=== PATIENT | male | born 1950 | race Caucasian/White ===

== ENCOUNTER 2018-10-21 08:39 | Day surgery (SDC) | payer MEDICARE, OTHER, SELFPAY ==
--- NOTE | 2018-10-21 | PATH_ITS ---
[facility] Accession Number: [id number] . 01 Material submitted: . RECTAL POLYP . 02 Diagnosis: Rectum, Polyp, Biopsy: Mucosal prolapse polyp. MRV/10/22/2018 . 02 Electronically signed: . Emily Humphrey MD, Pathologist NPI- [id number] . 01 Gross description: . Received one formalin-filled container labeled with the patient's name and labeled rectal polyp. The specimen consists of a 0.2 cm portion of tissue, entirely submitted in one cassette. ([id number]) /FRR . 02 Pathologist provided ICD-10: K63.5 . 02 CPT . 923257 Performed at: 01 [facility] [place] [address] [id number] MD Maynor Carvajal MD Phone: [phone] Performed at: 02 [facility] [place] [address] [place], [place] [id number] MD Emily Humphrey MD Phone: [phone]
[2018-10-21 09:07] VITALS: BP 137/92; PULSE 67; RESP 18; TEMP 36.7; O2SAT 98; BMI 32.3
[2018-10-21] MEDS: SODIUM CHLORIDE 0.9% 1,000 ML 200 ML IV (09:07)
--- NOTE | 2018-10-21 09:43 | PM.HP.1 ---
History of Present Illness Date Patient Seen: 10/21/18 Time Patient Seen: 09:43 Chief complaint: [id number] COLONOSCOPY Narrative: the patient is a gentleman who is here for a screening colonoscopy. His last exam was 5 years ago. He has a history of polyps. No family history of colon cancer. Patient History Medical History Healthy adult male (Acute) Elevated cholesterol (Chronic) Social History household members: spouse Family & Social History Social History: household members spouse Meds Home Medications Medication Instructions Recorded Confirmed Type ASPIRIN (Aspirin) 81 mg PO DAILY #0 08/03/08 10/21/18 History Atorvastatin Calcium (Lipitor) 10 mg PO BEDTIME #0 08/03/08 10/21/18 History Zolpidem Tartrate (Ambien) See Rx Instructions .ROUTE 08/03/08 History .COMPLEX #0 Allergies Allergy/AdvReac Type Severity Reaction Status Date / Time No Known Drug Allergies Allergy Verified 10/21/18 09:21 Review of Systems Review of Systems All systems reviewed & are unremarkable except as noted in HPI and below Exam Vital Signs (past 8 hours): - 10/21/18 09:07 Temperature 98.1 F Pulse Rate 67 Respiratory Rate 18 Blood Pressure 137/92 H Pulse Oximetry 98 Oxygen Delivery Method Room Air Narrative Exam Narrative: operative pleasant gentleman in no apparent distress. His eyes are nonicteric. Lungs are clear to auscultation. No rales or rhonchi. Heart regular rate and rhythm without murmur gallop. Abdomen is mildly protuberant soft nontender without mass. I believe the of the diastasis recti. Alert and oriented x3 Assessment & Plan Assessment & Plan narrative: patient for screening colonoscopy. I have discussed the procedure and the rationale with the patient including risks of bleeding, perforation which would necessitate a major operation, failure to find remove all lesions and the potential to tattoo. They appeared to understand and wished to proceed.
--- NOTE | 2018-10-21 09:47 | PM.PREOP ---
Pre-operative Note Interval Note History & Physical reviewed/Exam performed by Physician: Yes Changes to H&P: No ASA Class (for procedural sedation): I
[2018-10-21] MEDS: MIDAZOLAM 5 MG/5 ML VIAL IV (10:36)
[2018-10-21] MEDS: fentaNYL 250 MCG/5 ML INJ IV (10:37)
--- NOTE | 2018-10-21 10:41 | PM.OP.ENDO ---
Operative Date/Time/Diagnoses Date of procedure: 10/21/18 Time of procedure: 10:41 Pre-op diagnosis: screening exam. Last exam 5 years ago. History of polyps. Post-op diagnosis: same ( Single small polyp like lesion in the rectum.) Procedure & Clinicians Study performed: Colonoscopy with cold biopsy Same procedure as scheduled: Yes Indications: screening Surgeon: Tong Rubin Procedure Notes SCOAP/Timeout: performed Procedure in detail: The patient was placed in the left lateral decubitus position and underwent IV sedation directed by the surgeon consisting of fentanyl and Versed. Digital exam was[]. The scope was inserted and advanced through the rectum into the sigmoid, descending, transverse, and ascending colon. the colon was quite elongated and tortuous. The patient had to be repositioned, stiffener inserted common pressure applied to get that far. I ultimately reached the cecum.. The cecum was reached identified by the ileocecal valve and the appendiceal opening. The scope was gradually brought out. One Polyps were found at in the rectum and it was biopsied to complete removal. It was tiny.. The scope ultimately was retroflexed in the rectum. The appearance was Normal. The scope was removed and the patient tolerated the procedure well. there was a great deal of liquid in the patient's colon. Otherwise the prep was good. Scope withdrawal time: 9 min Sedation minutes: 40 Findings: polyp ( 1 tiny rectal) Specimen(s): other ( polyp) Complications: none Impression: tiny rectal polyp. Elongated tortuous colon. Recommendations: Colonscopy in 5 years Follow up: as needed Disposition: PACU
[2018-10-21 10:44] VITALS: BP 120/78; PULSE 59; RESP 14; TEMP 36.6; O2SAT 95
[2018-10-21 10:50] VITALS: BP 102/61; PULSE 53; RESP 14; O2SAT 96
[2018-10-21 10:55] VITALS: BP 104/72; PULSE 53; RESP 12; O2SAT 97
[2018-10-21 11:00] VITALS: BP 107/69; PULSE 53; RESP 11; O2SAT 95
[2018-10-21 11:11] VITALS: BP 105/70; PULSE 48; RESP 16; TEMP 36.6; O2SAT 94
== END 2018-10-21 11:30 | disposition home or self-care (01) ==
PROVIDERS: PCP Family Medicine Sports Medicine; Visit Provider Specialist
PROC: 0DJD8ZZ Inspection of Lower Intestinal Tract, Via Natural or Artificial Opening Endoscopic (ICD-10-PCS; CPT 45378; principal; 2018-10-21 09:45)
DX: Z86.010 Personal history of colon polyps; E78.00 Pure hypercholesterolemia, unspecified; D12.8 Benign neoplasm of rectum
CPT/HCPCS: 45380; 88305; 99152; 99153; J2250; J3010

== ENCOUNTER → 2020-04-28 16:20 | Outpatient (ROUT) | payer MEDICARE, OTHER, SELFPAY ==
[2020-04-28 17:42] LABS: Aspartate Aminotransferase 40 IU/L (17-59); BUN Creatinine Ratio 24.6 (6-22); Blood Urea Nitrogen 17 mg/dL (9-20); Calcium 9.4 mg/dL (8.4-10.2); Carbon Dioxide 30 mmol/L (22-32); Chloride 101 mmol/L (98-107); Cholesterol 164 mg/dL (140-199); Estimated Glomerular Filt Rate > 60.0 mL/min (>60); Glucose 88 mg/dL (80-110); HDL Cholesterol 44 mg/dL (40-60); HEMOLYSIS < 15 (0-50); LDL Cholesterol Calculated 86 mg/dL (<100); Potassium 4.6 mmol/L (3.4-5.1); Sodium 137 mmol/L (137-145); Triglycerides 171 mg/dL (35-150)
[2020-04-28 18:08] LABS: Prostate Specific Antigen 3.82 ng/mL (0.10-4.00); TSH w/ Reflex to FT4 2.38 uIU/mL (0.47-4.68)
== END ==
PROVIDERS: PCP Family Medicine Sports Medicine; Visit Provider Internal Medicine
DX: N40.0 Benign prostatic hyperplasia without lower urinary tract symptoms (principal); E78.2 Mixed hyperlipidemia; R94.6 Abnormal results of thyroid function studies
CPT/HCPCS: 80048; 80061; 84153; 84443; 84450

== ENCOUNTER → 2020-10-13 18:28 | Outpatient (ROUT) | payer MEDICARE, OTHER, SELFPAY ==
[2020-10-15 08:28] LABS: PSA Free % 15.6 % (.); PSA, Total 4.1 ng/mL (0.0-4.0)
== END ==
PROVIDERS: PCP Family Medicine Sports Medicine; Visit Provider Internal Medicine
DX: R97.20 Elevated prostate specific antigen [PSA] (principal)
CPT/HCPCS: 84153; 84154

== ENCOUNTER → 2021-08-23 11:50 | Outpatient (CLI) | payer MEDICARE, OTHER, SELFPAY ==
[2021-08-23 14:04] LABS: Prostate Specific Antigen 5.99 ng/mL (0.10-4.00)
== END ==
PROVIDERS: PCP Internal Medicine; Referring Provider Specialist; Visit Provider Specialist
DX: N40.1 Benign prostatic hyperplasia with lower urinary tract symptoms (principal); N13.8 Other obstructive and reflux uropathy; R97.20 Elevated prostate specific antigen [PSA]; N52.9 Male erectile dysfunction, unspecified
CPT/HCPCS: 36415; 51798; 84153; 99214

== ENCOUNTER → 2021-10-12 13:55 | Outpatient (CLI) | payer MEDICARE, OTHER, SELFPAY ==
[2021-10-13 07:47] LABS: PSA Free % 15.4 % (.)
== END ==
PROVIDERS: PCP Internal Medicine; Referring Provider Specialist; Visit Provider Specialist
DX: R97.20 Elevated prostate specific antigen [PSA] (principal)
CPT/HCPCS: 36415; 84153; 84154

== ENCOUNTER → 2022-01-02 15:35 | Outpatient (CLI) | payer MEDICARE, OTHER, SELFPAY ==
[2022-01-02 17:09] LABS: Prostate Specific Antigen Scrn 6.91 ng/mL (0.1-4.0)
== END ==
PROVIDERS: PCP Internal Medicine; Referring Provider Specialist; Visit Provider Specialist
DX: R97.20 Elevated prostate specific antigen [PSA] (principal)
CPT/HCPCS: 36415; 84153; G0103

== ENCOUNTER → 2022-01-08 13:50 | Outpatient (CLI) | payer MEDICARE, OTHER, SELFPAY ==
--- NOTE | 2022-01-08 14:00 | DI.CT.S_ITS ---
PROCEDURE: CT KIDNEY URETER BLADDER (KUB) INDICATIONS: Kidney stone TECHNIQUE: Axial sections were acquired from the lung bases to the pubic symphysis. Coronal and sagittal reformats were performed. For radiation dose reduction, the following was used: automated exposure control, adjustment of mA and/or kV according to patient size. COMPARISON: None. FINDINGS: Image quality: Excellent. Lung bases: Lung bases are clear. Heart size is normal. Solid organs: Liver: The liver has no mass or intrahepatic biliary ductal dilatation. The portal vein and hepatic veins are patent. Biliary: The gallbladder has no gallstones, pericholecystic fluid, gallbladder wall thickening, or surrounding inflammatory change. Pancreas: The pancreas has no mass or ductal dilatation. There is no surrounding inflammation. Spleen: Normal size. There are no masses. Adrenals: No hypertrophy or nodules. Kidneys: No obstructive calculus or hydronephrosis. No solid mass. No cystic mass. Peritoneum and bowel: The distal esophagus and stomach are normal. The small bowel has a normal caliber and appearance. The terminal ileum is normal. The large bowel has a normal caliber and appearance. The appendix is normal. No free fluid or air. Nodes and vessels: No retroperitoneal or mesenteric adenopathy by size criteria. Aorta and inferior vena cava are normal in size. Miscellaneous: No abdominal wall mass or hernia. PELVIS: Genitourinary: The bladder has no wall thickening or mass. No bladder calcifications. Bones: No suspicious bony lesions. Degenerative changes with no focal abnormality. IMPRESSION: 1. No acute or posttraumatic abnormality. 2. No nephroureterolithiasis. Dictated by: Fabien Saucedo M.D. on 01/08/2022 at 14:26 Approved by: Fabien Saucedo M.D. on 01/08/2022 at 14:31
== END ==
PROVIDERS: PCP Internal Medicine; Referring Provider Specialist; Visit Provider Specialist
DX: N20.0 Calculus of kidney (principal)
CPT/HCPCS: 74176

== ENCOUNTER → 2022-02-07 16:32 | Outpatient (CLI) | payer MEDICARE, OTHER, SELFPAY ==
[2022-02-09 03:44] LABS: Prostate Specific Antigen 5.13 ng/mL (0.10-4.00)
== END ==
PROVIDERS: PCP Internal Medicine; Referring Provider Specialist; Visit Provider Specialist
DX: R97.20 Elevated prostate specific antigen [PSA] (principal)
CPT/HCPCS: 36415; 84153

== ENCOUNTER → 2022-02-26 12:47 | Outpatient (CLI) | payer MEDICARE, OTHER, SELFPAY ==
--- NOTE | 2022-02-26 12:49 | DI.MRI.S_ITS ---
PROCEDURE: MR PELIS WO/W CON INDICATIONS: BPH TECHNIQUE: Coronal HASTE, axial T1 FSE with fat saturation, 3-plane nonbreath-hold T2 FSE. After the administration of contrast, dynamic axial, delayed axial and coronal VIBE or 2-D FLASH with fat saturation through the pelvis. Optional diffusion weighted imaging and ADC may be performed. COMPARISON: None. FINDINGS: Image quality: Diffusion weighted and dynamic contrast enhanced images are diagnostic. Prostate: Gland size is 5.4 x 3.9 x 5.2 cm; ellipsoid gland volume is 57 mL. Lesion #1: Size: 1.6 x 0.6 x 1.1 cm Location: Right posteromedial/posterolateral peripheral zone, mid gland (for example axial ADC series 24, image 15) T2 signal: Circumscribed hypointense DWI/ADC signal: Hypointense on ADC with corresponding DWI hyperintensity DCE: Positive FABIOLA: Possible FABIOLA posteriorly (for example sagittal T2 series 6, image 10) Seminal vesicle invasion: Absent PI-RADS: T2 signal - 5; ADC - 5; DCE - positive; Overall score: PI-RADS 5. Genitourinary system: Bladder wall thickness is normal. Distal ureters are non distended. Bowel and peritoneum: No pathologic free pelvic fluid. Inferior colon and small bowel loops are normal in caliber. Nodes and vessels: No pelvic or inguinal adenopathy by size criteria. Iliac arteries are normal in caliber. Bones: Marrow demonstrates unremarkable overall signal, without lesions to suggest metastases. IMPRESSION: 1. A 1.6 cm lesion at the right peripheral zone, mid gland, is consistent with PI-RADS category 5. There is possible extracapsular extension posteriorly. 2. No suspicious lymph nodes visualized in the imaged pelvis. Dictated by: Rufus Morataya M.D. on 02/26/2022 at 16:23 Approved by: Rufus Morataya M.D. on 02/26/2022 at 16:44
== END ==
PROVIDERS: PCP Internal Medicine; Referring Provider Specialist; Visit Provider Specialist
DX: D40.0 Neoplasm of uncertain behavior of prostate (principal); N13.8 Other obstructive and reflux uropathy
CPT/HCPCS: 72197; A9579

== ENCOUNTER → 2022-06-22 15:03 | Outpatient (CLI) | payer MEDICARE, OTHER, SELFPAY ==
[2022-06-22 18:44] LABS: Prostate Specific Antigen 5.98 ng/mL (0.10-4.00)
== END ==
PROVIDERS: PCP Family Medicine; Referring Provider Specialist; Visit Provider Specialist
DX: C61 Malignant neoplasm of prostate (principal)
CPT/HCPCS: 36415; 84153

== ENCOUNTER → 2022-08-15 11:40 | Outpatient (CLI) | payer MEDICARE, OTHER, SELFPAY ==
[2022-08-15 13:30] LABS: Prostate Specific Antigen 6.08 ng/mL (0.10-4.00)
== END ==
PROVIDERS: Specialist; PCP Family Medicine; Referring Provider Internal Medicine; Visit Provider Internal Medicine
DX: R97.20 Elevated prostate specific antigen [PSA] (principal)
CPT/HCPCS: 36415; 84153

== ENCOUNTER → 2023-04-24 14:54 | Outpatient (CLI) | payer MEDICARE, OTHER, SELFPAY ==
[2023-04-24 17:11] LABS: Prostate Specific Antigen 1.26 ng/mL (0.10-4.00)
== END ==
PROVIDERS: PCP Family Medicine; Referring Provider Radiology Radiation Oncology; Visit Provider Radiology Radiation Oncology
DX: C61 Malignant neoplasm of prostate (principal)
CPT/HCPCS: 36415; 84153

== ENCOUNTER → 2024-09-17 14:22 | Outpatient (CLI) | payer MEDICARE, OTHER, SELFPAY | PROVIDERS: PCP Family Medicine; Referring Provider Physician Assistant; Visit Provider Physician Assistant | DX: C61 Malignant neoplasm of prostate (principal) | CPT/HCPCS: 36415; 84153 ==